=== PATIENT | female | born 1955 | race Caucasian/White ===

== ENCOUNTER 2024-04-26 13:26 | Outpatient (RCR) | payer MEDICARE, SELFPAY ==
[2024-04-26 13:43] VITALS: BP 138/83; PULSE 65; RESP 18; TEMP 35.8; BMI 20.6
== END 2024-04-29 23:59 | disposition left against medical advice (07) ==
LOC: WC 13:26
PROVIDERS: PCP Pharmacist Pharmacist Clinician (PhC)/ Clinical Pharmacy Specialist; Referring Provider Pharmacist Pharmacist Clinician (PhC)/ Clinical Pharmacy Specialist; Visit Provider Physician Assistant
DX: Z00.00 Encounter for general adult medical examination without abnormal findings (principal)